=== PATIENT | female | born 1990 | race Hispanic/Latino ===

== ENCOUNTER 2018-01-26 11:46 | Emergency (ER) | payer OTHER ==
[2018-01-26 11:47] VITALS: BMI 40.9
[2018-01-26] MEDS ORDERED: Alum-Mag Hydrox-Simethicone Susp (30 mL) PO STA (12:03)
[2018-01-26] MEDS ORDERED: Atrop/Hyosc/Scopal/PB Elixir (120 ml) PO STA (12:03)
[2018-01-26] MEDS ORDERED: Sodium Chloride 0.9% 1,000 ML IV STA ×2 (12:03→15:36)
--- NOTE | 2018-01-26 12:05 | ED PDOC ---
Arrival/HPI - General Time Seen by Provider: 01/26/18 11:48 Historian: Patient - History of Present Illness Narrative History of Present Illness (Text): 01/26/18 12:00 A 27 year old female, with no significant past medical history, presents to the emergency department with 2-3 week duration worsening nausea, vomiting, diarrhea , lightheadedness, chills, body aches, and abdominal pain that radiates to her back. Patient notes that the nausea and vomiting began today. She reports that the 2-3 week duration diarrhea occurs more that 3 times a day. Patient notes that she was seen [place] [facility] [place] and was discharged home. Patient notes that she occasionally drinks alcohol/uses marijuana. The patient denies fevers, headache, sore throat, cough, chest pain, shortness of breath, dyspnea on exertion, neck pain, urinary changes or any other complaint. PMD: None Time/Duration: Other (2-3 weeks) Symptom Onset: Sudden Symptom Course: Worsening Activities at Onset: Rest, Light Context: Home Past Medical History - Provider Review Nursing Documentation Reviewed: Yes - Past History Past History: No Previous - Infectious Disease Hx of Infectious Diseases: None - Tetanus Immunization Tetanus Immunization: Unknown - Past Medical History Past Medical History: No Previous - Cardiac Hx Cardiac Disorders: No - Pulmonary Hx Asthma: Yes Hx Bronchitis: Yes - Neurological Hx Neurological Disorder: No - HEENT Hx HEENT Disorder: No - Renal Hx Renal Disorder: No - Endocrine/Metabolic Hx Endocrine Disorders: No - Hematological/Oncological Other/Comment: hpv - Integumentary Hx Dermatological Disorder: No - Musculoskeletal/Rheumatological Hx Back Pain: Yes Hx Falls: No - Gastrointestinal Hx Gastrointestinal Disorders: Yes (hemorrhoids) - Genitourinary/Gynecological Hx Genitourinary Disorders: Yes Hx Sexually Transmitted Diseases: Yes (HPV) - Psychiatric Hx Psychophysiologic Disorder: No Hx Anxiety: Yes Hx Bipolar Disorder: No Hx Depression: Yes Hx Emotional Abuse: No Hx Hallucinations: No Hx Panic Disorder: No Hx Post Traumatic Stress Disorder: No Hx Psychosis: No Hx Physical Abuse: No Hx Schizophrenia: No Hx Sexual Abuse: No Hx Substance Use: No (denies smoking pot) Other/Comment: denies smoking pot - Surgical History Hx Section: Yes (x2) - Anesthesia Hx Anesthesia: Yes Hx Anesthesia Reactions: No Hx Malignant Hyperthermia: No - Suicidal Assessment Feels Threatened In Home Enviroment: No Family/Social History - Physician Review Nursing Documentation Reviewed: Yes Family/Social History: No Known Family HX Smoking Status: Former Smoker Hx Alcohol Use: No (social) Hx Substance Use: No (denies smoking pot) Hx Substance Use Treatment: No Allergies/Home Meds Allergies/Adverse Reactions: Allergies cat dander Allergy (Verified 04/14/16 08:59) SWELLING kiwi Allergy (Verified 04/14/16 08:59) ANAPHYLAXIS shellfish derived Allergy (Verified 04/14/16 08:59) ANAPHYLAXIS tobasco sauce Allergy (Severe, Uncoded 04/14/16 08:59) ANAPHYLAXIS Home Medications: Home Meds Medication Instructions Recorded Confirmed Multivit/Folic Acid/I 0 tab PO DAILY 01/18/16 02/14/16 [ Plus] Review of Systems - Physician Review All systems were reviewed & negative as marked: Yes - Review of Systems Constitutional: absent: Fevers Respiratory: absent: SOB, Cough Cardiovascular: absent: Chest Pain, ROJAS Gastrointestinal: Abdominal Pain, Diarrhea, Nausea, Vomiting Genitourinary Female: absent: Urine Output Changes Musculoskeletal: Back Pain, Myalgias. absent: Neck Pain Neurological: Dizziness (Lightheadedness). absent: Headache Physical Exam Pulse: Regular Appearance: Positive for: Non-Toxic, Uncomfortable Pain Distress: None Mental Status: Positive for: Alert and Oriented X 3 - Systems Exam Head: Present: Atraumatic, Normocephalic Pupils: Present: PERRL Extroacular Muscles: Present: EOMI Conjunctiva: Present: Normal Mouth: Present: Moist Mucous Membranes (Patient well hydrated. ) Neck: Present: Normal Range of Motion Respiratory/Chest: Present: Clear to Auscultation, Good Air Exchange. No: Respiratory Distress, Accessory Muscle Use Cardiovascular: Present: Regular Rate and Rhythm, Normal S1, S2. No: Murmurs Abdomen: Present: Tenderness (Tender to upper abdomen), Guarding (upper abdomen) . No: Rebound Back: Present: Normal Inspection Upper Extremity: Present: Normal Inspection. No: Cyanosis, Edema Lower Extremity: Present: Normal Inspection. No: Edema Neurological: Present: GCS=15, CN II-XII Intact, Speech Normal Skin: Present: Warm, Dry, Normal Color. No: Rashes Psychiatric: Present: Alert, Oriented x 3, Normal Insight, Normal Concentration Medical Decision Making ED Course and Treatment: 01/26/18 12:15 Impression: A 27 year old female presents to the emergency department with a complaint of abdominal pain, chills, body aches, nausea, vomiting, diarrhea, lightheadedness. Differential Diagnosis included but are not limited to: Gastroenteritis Plan: -- Labs -- Urinalysis -- Zofran, Pepcid, Lidocaine 2% Viscous, Elixir, and Maalox -- Reassess and disposition Progress Notes: 01/26/18 15:28: On reevaluation the patient feels better and is in no acute distress. Patient tolerating PO fluids, abdomen is soft with no abdominal tenderness. I have discussed the results and plan with the patient, who expresses understanding. Patient given the opportunity to ask question, all questions were answered and there is agreement with the plan to discharge the patient home. Patient is stable for discharge. Patient was instructed to follow up with physician/clinic in 1-2 days or return if symptoms persist/worsen or new concerning symptoms arise. - Lab Interpretations Lab Results: 01/26/18 12:03 01/26/18 12:03 Lab Results 01/26/18 12:03: Sodium 143, Potassium 3.6, Chloride 107, Carbon Dioxide 21, Anion Gap 19, BUN 8, Creatinine 0.6 L, Est GFR ( Amer) > 60, Est GFR (Non -Af Amer) > 60, Random Glucose 97, Calcium 9.2, Magnesium 1.5 L, Total Bilirubin 0.9, AST 19, ALT 17, Alkaline Phosphatase 71, Total Protein 7.7, Albumin 4.5, Globulin 3.2, Albumin/Globulin Ratio 1.4, Lipase 87 01/26/18 12:03: WBC 8.1 D, RBC 4.73, Hgb 10.8 L, Hct 35.4 L, MCV 74.8 L, MCH 22.8 L, MCHC 30.5 L, RDW 18.1 H, Plt Count 352, MPV 10.7, Gran % 72.5 H, Lymph % (Auto) 13.5 L, Barry % (Auto) 12.4 H, Eos % (Auto) 1.2 L, Baso % (Auto) 0.4, Gran # 5.83, Lymph # (Auto) 1.1 L, Barry # (Auto) 1.0 H, Eos # (Auto) 0.1, Baso # (Auto) 0.03 I have reviewed the lab results: Yes - Medication Orders Current Medication Orders: Discontinued Medications Al Hydrox/Mg Hydrox/Simethicone (Maalox Plus 30 Ml) 30 ml PO STAT STA Stop: 01/26/18 12:04 Last Admin: 01/26/18 12:51 Dose: 30 ml Belladonna/Phenobarbital ( Elixir) 10 ml PO STAT STA Stop: 01/26/18 12:04 Last Admin: 01/26/18 12:50 Dose: 10 ml Famotidine (Pepcid) 20 mg IVP STAT STA Stop: 01/26/18 12:04 Last Admin: 01/26/18 12:50 Dose: 20 mg IVP Administration Document 01/26/18 12:50 EQ (Rec: 01/26/18 12:50 EQ [id number]) Charges for Administration # of IVP Administrations 1 Sodium Chloride (Sodium Chloride 0.9%) 1,000 mls @ 1,000 mls/hr IV .Q1H STA Stop: 01/26/18 13:02 Last Admin: 01/26/18 12:25 Dose: 1,000 mls/hr eMAR Start Stop Document 01/26/18 12:25 EQ (Rec: 01/26/18 12:25 EQ [id number]) Intravenous Solution Start Date 01/26/18 Start Time 12:25 Lidocaine HCl (Lidocaine 2% Viscous) 10 ml MM STAT STA Stop: 01/26/18 12:04 Last Admin: 01/26/18 12:51 Dose: 10 ml Metoclopramide HCl (Reglan) 10 mg IVP STAT STA Stop: 01/26/18 15:21 Ondansetron HCl (Zofran Inj) 4 mg IVP STAT STA Stop: 01/26/18 12:04 Last Admin: 01/26/18 12:26 Dose: 4 mg IVP Administration Document 01/26/18 12:26 EQ (Rec: 01/26/18 12:26 EQ [id number]) Charges for Administration # of IVP Administrations 1 - Scribe Statement The provider has reviewed the documentation as recorded by the Rosemaryibmildred Olguin Provider Scribe Attestation: All medical record entries made by the Scribe were at my direction and personally dictated by me. I have reviewed the chart and agree that the record accurately reflects my personal performance of the history, physical exam, medical decision making, and the department course for this patient. I have also personally directed, reviewed, and agree with the discharge instructions and disposition. Disposition/Present on Arrival - Present on Arrival Any Indicators Present on Arrival: No History of DVT/PE: No History of Uncontrolled Diabetes: No Urinary Catheter: No History Surgical Site Infection Following: None - Disposition Have Diagnosis and Disposition been Completed?: Yes Diagnosis: Gastroenteritis Disposition: HOME/ ROUTINE Disposition Time: 15:31 Patient Plan: Discharge Patient Problems: Current Active Problems Problem Status Onset Gastroenteritis Acute Condition: IMPROVED Discharge Instructions (ExitCare): Gastroenteritis (ED) Additional Instructions: CHILO KIRAN, thank you for letting us take care of you today. Your provider was Hunter Lopez DO and you were treated for Gastroenteritis. The emergency medical care you received today was directed at your acute symptoms. If you were prescribed any medication, please fill it and take as directed. It may take several days for your symptoms to resolve. Return to the Emergency Department if your symptoms worsen, do not improve, or if you have any other problems. Please contact your doctor or call one of the physicians/clinics you have been referred to that are listed on the Patient Visit Information form that is included in your discharge packet. Bring any paperwork you were given at discharge with you along with any medications you are taking to your follow up visit. Our treatment cannot replace ongoing medical care by a primary care provider outside of the emergency department. Thank you for allowing the [facility] team to be part of your care today. If you had an X-Ray or CT scan: A Radiologist will review the ED reading if any change in treatment is needed we will contact you. If you had a blood, urine, or wound culture: It will take several days for the results, if any change in treatment is needed we will contact you. If you had an STI test: It will take 48 hours for the results. Please call after 1 week if you have not heard back. Prescriptions: Ondansetron ODT [Zofran ODT] 4 mg PO Q6 #14 odt Ranitidine HCl [Zantac] 150 mg PO BID PRN #30 tablet PRN Reason: Pain, Mild (1-3) Referrals: Alan Pate MD [Primary Care Provider] - Follow up with primary Forms: Goby (Portuguese), WORK NOTE
[2018-01-26 12:45] LABS: BASO # 0.03 K/mm3 (0.0-2.0); BASO % 0.4 % (0.0-3.0); EOS # 0.1 (0.0-0.7); EOS % 1.2 % (1.5-5.0); GRAN # 5.83 (1.4-6.5); GRAN % 72.5 % (50.0-68.0); HEMOGLOBIN 10.8 g/dL (12.0-16.0); LYMPH # 1.1 (1.2-3.4); LYMPH % 13.5 % (22.0-35.0); MEAN CELL VOLUME 74.8 fl (80.0-105.0); MEAN CORPUSCULAR HEMOGLOBIN 22.8 pg (25.0-35.0); MEAN CORPUSCULAR HGB CONC 30.5 g/dl (31.0-37.0); MEAN PLATELET VOLUME 10.7 fl (7.0-11.0); MONO % 12.4 % (1.0-6.0); RBC 4.73 10^6/uL (3.5-6.1); RED CELL DISTRIBUTION WIDTH 18.1 % (11.5-14.5); WHITE BLOOD COUNT 8.1 10^3/ul (4.5-11.0)
[2018-01-26 12:48] LABS: ALB/GLOB RATIO 1.4 (1.1-1.8)
[2018-01-26 12:50] LABS: ALBUMIN 4.5 g/dL (3.0-4.8); ALT/SGPT 17 U/L (7-56); AST/SGOT 19 U/L (14-36); BLOOD UREA NITROGEN 8 mg/dL (7-21); CALCIUM 9.2 mg/dL (8.4-10.5); GFR AFRICAN-AMERICAN > 60; GFR NON-AFRICAN AMERICAN > 60; LIPASE 87 U/L (23-300)
[2018-01-26 15:37] VITALS: TEMP 98.3
[2018-01-26 16:22] VITALS: BP 101/63; PULSE 69; RESP 18; O2SAT 98
== END 2018-01-26 16:23 | disposition home or self-care (01) ==
LOC: ED 11:46
DX: K52.9 Noninfective gastroenteritis and colitis, unspecified (principal); Z87.891 Personal history of nicotine dependence
CPT/HCPCS: 80053; 83690; 83735; 85025; 96374; 96375; 99284; J2405; J2765; J7030